=== PATIENT | female | born 1940 | race African-American/Black ===

== ENCOUNTER 2019-10-29 02:11 | Emergency (ER) | payer MEDICARE, MEDICAID, SELFPAY ==
--- NOTE | ~2019-10-29 | CT_ITS ---
EXAMINATION: CT brain wo con DATE: 10/29/2019 02:41 INDICATION: Head injury. TECHNIQUE: Computed tomography (CT) of the head was performed without intravenous contrast. The mA wa s adjusted according to patient size. Iterative reconstruction technique was employed. The dose-lengt h product was 605.33 mGy-cm. COMPARISON: Head CT 02/07/2019 FINDINGS: There is chronic encephalomalacia involving the left frontal, temporal, and parietal lobes and left insula in the expected distribution of the left middle cerebral artery. There are scattered areas of low attenuation in the cerebral white matter. There is no intracranial hemorrhage, acute inf arction, or abnormal intracranial mass lesion. There is ex vacuo dilatation of left lateral ventricle . The paranasal sinuses are clear. The mastoid air cells are normal. 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 IMPRESSION: 1. Chronic encephalomalacia in the expected distribution of the left middle cerebral artery. 2. Stable mild nonspecific cerebral white matter disease, which likely represents chronic small vesse l ischemic disease. Reviewed, dictated and finalized at location A. IMPRESSION: 1. Chronic encephalomalacia in the expected distribution of the left middle cer ebral artery. 2. Stable mild nonspecific cerebral white matter disease, which likely represen ts chronic small vessel ischemic disease.
[2019-10-29 02:14] VITALS: BP 145/96; PULSE 79; RESP 18; TEMP 36.6; O2SAT 95
--- NOTE | 2019-10-29 02:21 | ED.FALL ---
HPI - Fall General Chief Complaint: Fall Stated Complaint: fall Time Seen by Provider: 10/29/19 02:20 History of Present Illness HPI Narrative: 79 yo female w/ h/o stroke and dementia [facility] [place] [facility] after a [facility]. She is supposed to have assistance with walking, but got out of bed on her own. She fell and struck her head. She had a similar fall on Monday night. She is noted to have swelling and bruising around the right eye as well as a small laceration. On arrival she c/o of pain around the eye. History limited due to dementia Related Data Home Medications Medication Instructions Recorded Confirmed alendronate mg PO 10/29/19 amlodipine 10/29/19 bisacodyl 5 mg PO HS 10/29/19 10/29/19 calcium carbonate 600 mg PO BID 10/29/19 10/29/19 hydrochlorothiazide 10/29/19 mirabegron [Myrbetriq] mg PO 10/29/19 phenytoin sodium extended PO 10/29/19 Allergies Allergy/AdvReac Type Severity Reaction Status Date / Time No Known Allergies Allergy Unverified 02/07/19 02:01 Review of Systems Review of Systems: ROS unobtainable: Yes unobtainable due to mental status [facility] Past Medical History Medical History (Updated 10/29/19 @ 03:06 by Michele Mcmahon MD) Dementia HTN (hypertension) Social History Social History (Updated 10/29/19 @ 03:06 by Michele Mcmahon MD) Living arrangements: snf Exam Const: General: no acute distress, alert and confusion HENMT: Other: Moderate right periorbital hematoma Eyes: Pupils: Equal, round and reactive pupils present Resp: Effort & Inspection: normal respiratory effort Auscultation: clear to auscultation bilaterally Cardio: Rate: regular rate Rhythm: regular rhythm Skin: General skin exam: normal color Rashes: no rashes Neuro: Speech: normal speech Extrem: General: edema Other: contractures Course Vital Signs Vital signs: Vital Signs Temperature 36.6 C 10/29/19 02:14 Pulse Rate 79 10/29/19 02:14 Respiratory Rate 18 10/29/19 02:14 Blood Pressure 145/96 H 10/29/19 02:14 Pulse Oximetry 95 10/29/19 02:14 Temperature 36.6 C 10/29/19 02:14 Pulse Rate 83 10/29/19 02:44 Respiratory Rate 18 10/29/19 02:44 Blood Pressure 140/82 10/29/19 02:44 Pulse Oximetry 97 10/29/19 02:44 MDM - Fall MDM Narrative Medical decision making narrative: TC negative for any acute injuries Discharge Plan Discharge Clinical Impression: Closed head injury Qualifiers: Encounter type: initial encounter Qualified Code(s): S09.90XA - Unspecified injury of head, initial encounter [facility] Condition: Stable Instructions: Head Injury (ED) Prescriptions: No Action alendronate 70 mg tablet PO RF: 0 phenytoin sodium extended 100 mg capsule PO RF: 0 amlodipine 5 mg tablet RF: 0 calcium carbonate 600 mg calcium (1,500 mg) Tablet 600 mg PO BID RF: 0 bisacodyl 5 mg Tablet,Delayed Release (Dr/Ec) 5 mg PO HS RF: 0 hydrochlorothiazide 25 mg tablet RF: 0 Myrbetriq 25 mg tablet extended release 24 hr PO RF: 0 Follow-up/Referrals: Kevin Veliz MD [Primary Care Provider] -
[2019-10-29 02:44] VITALS: BP 140/82; PULSE 83; RESP 18; O2SAT 97
--- NOTE | 2019-10-29 02:44 | PC.NURSE ---
pt derecka & veronica chandra, called for update. this rn explained why blair was in our ed and what dr had ordered but explained we didn't have any results yet. this rn stated that he will be called w/ any updates. [phone]
[2019-10-29 03:33] VITALS: BP 127/76; PULSE 81; RESP 18; O2SAT 100
== END 2019-10-29 03:53 ==
PROVIDERS: Emergency Provider Emergency Medicine; PCP Internal Medicine
DX: S09.90XA Unspecified injury of head, initial encounter (principal); F03.90 Unspecified dementia, unspecified severity, without behavioral disturbance, psychotic disturbance, mood disturbance, and anxiety; I10 Essential (primary) hypertension; W19.XXXA Unspecified fall, initial encounter
CPT/HCPCS: 70450; 99284

== ENCOUNTER 2021-03-04 17:13 | Emergency (ER) | payer MEDICARE, MEDICAID, SELFPAY ==
--- NOTE | ~2021-03-04 | CT_ITS ---
EXAMINATION: CT cervical spine wo con DATE: 03/04/2021 20:58 INDICATION: Head injury TECHNIQUE: Computed tomography (CT) of the cervical spine was performed without intravenous contrast. The dose-length product (DLP) was 173.32 mGy-cm. Automated exposure control and iterative reconstruc tion technique were employed. COMPARISON: None FINDINGS: There is 1 mm of retrolisthesis of C3 on C4 at 1 mm of anterolisthesis of C4 on C5. The abhilash tebral body heights are maintained. There is severe loss of intervertebral disc space height from C3- 4 through C6-7. The prevertebral soft tissues are normal. There is moderate to severe multilevel unco vertebral joint osteoarthritis. There is severe facet osteoarthritis on the right and mild to moderat e facet osteoarthritis on the left. The odontoid is intact. There is no fracture. There is severe antonia tral canal stenosis at C3-4. IMPRESSION: 1. Severe cervical spondylosis without acute findings. Reviewed, dictated and finalized at location A.
--- NOTE | ~2021-03-04 | CT_ITS ---
EXAMINATION: CT brain wo con INDICATION: Head injury COMPARISON: 10/29/2019 TECHNIQUE: Standard unenhanced head CT. The dose-length product (DLP) was 605.33 mGy-cm. The mA was a djusted according to patient size. Iterative reconstruction technique was employed. FINDINGS: There is no acute intraparenchymal hemorrhage. No evidence of mass lesion. No evidence of a cute infarction. A chronic left middle cerebral artery distribution infarct is again noted. There is mild periventricular and subcortical hypodensity probably related to small vessel ischemic disease. T here is ex vacuo enlargement of the left lateral ventricle. Intracranial calcified cerebral atheroscl erosis is noted. There are no extra-axial collections. There is no mass affect. The orbits and soft t issues are unremarkable. The visualized sinuses and mastoid air cells are well aerated. IMPRESSION: 1. Old left middle cerebral artery distribution infarct without acute intracranial abnormality. 2. Age related findings. Reviewed, dictated and finalized at location A. IMPRESSION: 1. Old left middle cerebral artery distribution infarct without acute intracran ial abnormality. 2. Age related findings.
[2021-03-04 17:22] VITALS: BP 135/79; PULSE 88; RESP 18; TEMP 36.8; O2SAT 100
--- NOTE | 2021-03-04 20:00 | PC.NURSE ---
Papa Camilo at [facility] states pt takes a daily baby aspirin.
[2021-03-04 21:00] VITALS: BP 128/72; PULSE 81; RESP 18; O2SAT 100
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
--- NOTE | 2021-03-04 21:52 | PC.NURSE ---
Leslee at [facility] notified of discharge.
--- NOTE | 2021-03-04 22:16 | PC.NURSE ---
Addendum entered by Azul Timmons 03/04/21 23:48: [facility] called with updated ETA...approximately 0200. Original Note: Called [facility] for return BLS transport to [facility]....ETA 0400. Trip # [phone] Also called [facility] and [facility]...both declined
--- NOTE | 2021-03-04 23:26 | PC.NURSE ---
Moved to room #1
--- NOTE | 2021-03-04 23:44 | PC.NURSE ---
Assumed care of pt at this time. Report taken from Kathy RAMOS. Pt sleeping on stretcher, lights dimmed.
--- NOTE | 2021-03-05 00:32 | PC.NURSE ---
EMS transport not available for hours; no contacts listed in demographics.
[2021-03-05 00:46] VITALS: BP 119/72; PULSE 66; RESP 18; TEMP 36.8; O2SAT 97
== END 2021-03-05 01:24 | disposition home or self-care (01) ==
PROVIDERS: Emergency Provider Emergency Medicine
DX: S09.90XA Unspecified injury of head, initial encounter (principal); Z79.82 Long term (current) use of aspirin; W05.0XXA Fall from non-moving wheelchair, initial encounter
CPT/HCPCS: 70450; 72125; 99284

== ENCOUNTER 2021-03-11 19:05 | Emergency (ER) | payer MEDICARE, MEDICAID, SELFPAY ==
--- NOTE | ~2021-03-11 | CT_ITS ---
EXAMINATION: CT cervical spine wo con DATE: 03/11/2021 21:37 INDICATION: Status post fall from wheelchair. TECHNIQUE: Computed tomography (CT) of the cervical spine was performed without intravenous contrast. The dose-length product was 119 mGy-cm. Automated exposure control and iterative reconstruction tech nique were employed. COMPARISON: CT dated 03/04/2021 FINDINGS: Severe cervical spondylosis with advanced multilevel uncinate and facet degenerative change . There is advanced multilevel degenerative disc disease with degenerative anterolisthesis at C4-5. C raniovertebral junction is normal. Odontoid process within normal limits. No significant paraspinal s oft tissue abnormality. Lung apices are normal. No evidence for perched facet. IMPRESSION: 1. No acute fracture. 2: Severe cervical spondylosis. Reviewed, dictated and finalized at location A.
--- NOTE | ~2021-03-11 | CT_ITS ---
EXAMINATION: CT brain wo con DATE: 03/11/2021 21:37 INDICATION: Head injury. Status post fall. TECHNIQUE: Computed tomography (CT) of the head was performed without intravenous contrast. The dose- length product was 529.67 mGy-cm. Automated exposure control and iterative reconstruction technique w ere employed. COMPARISON: CT dated 03/04/2021 FINDINGS: Large chronic left MCA distribution infarction with encephalomalacia. No acute intracranial hemorrhage, infarction, mass or mass effect. There are scattered mild periventricular and subcortica l white matter changes, most likely related to small vessel ischemic disease (microangiopathy). Paran asuncion sinuses and mastoids are pneumatized. No depressed skull fractures. IMPRESSION: 1. No acute intracranial abnormality. No significant interval change. Reviewed, dictated and finalized at location A.
--- NOTE | ~2021-03-11 | XR_ITS ---
XR pelvis 1-2V 03/11/2021 21:41 INDICATION: Status post fall. Hip pain. PROCEDURE: AP pelvis COMPARISON: 01/17/2019 FINDINGS: Fracture, dislocation or subluxation is not identified. Pelvic rings are intact. There is l ower lumbar spondylosis with levoscoliosis. The soft tissues appear within normal limits. No foreign bodies are identified. IMPRESSION: 1: NO ACUTE BONE OR JOINT ABNORMALITY IDENTIFIED. Reviewed, dictated and finalized at location A.
[2021-03-11 19:37] VITALS: BP 116/69; PULSE 93; RESP 16; TEMP 36.1; O2SAT 100
--- NOTE | 2021-03-11 21:32 | ED.FALL ---
HPI - Fall General Chief Complaint: Fall Stated Complaint: FELL FROM W/C DENIES INJURY Time Seen by Provider: 03/11/21 21:03 Source: patient, EMS and RN notes reviewed Mode of arrival: EMS Limitations: no limitations History of Present Illness HPI Narrative: This is a 80 year old female who presents for evaluation after a fall. Patient states she accidentally fell out of her wheelchair. She was leaning over when she fell out of chair onto her bottom. She does state she hit her head but denies LOC. She denies headache, nausea, vomiting, dizziness. She denies any pain. She does take aspirin daily. Related Data Allergies Allergy/AdvReac Type Severity Reaction Status Date / Time No Known Allergies Allergy Verified 03/04/21 19:58 Review of Systems Review of Systems: All systems reviewed & are unremarkable except as noted in HPI and below Exam Const: General: no acute distress and alert Orientation/consciousness: patient oriented x3 HENMT: Head: normocephalic and atraumatic Face and sinus: normal facial exam, sinuses nontender and face symmetric Eyes: Pupils: Equal, round and reactive pupils present EOM: EOMs intact bilaterally Neck: Neck: normal visual inspection Chest: Chest palpation & inspection: normal inspection of the chest Resp: Effort & Inspection: normal respiratory effort and no retractions Auscultation: clear to auscultation bilaterally Cardio: Rate: regular rate Rhythm: regular rhythm Heart sounds: no murmurs GI: GI Palp: Yes Soft to palpation, No Tenderness to palpation present (GI) and No Guarding due to palpation present (GI) Auscultation: normal bowel sounds Skin: General skin exam: normal color Rashes: no rashes Neuro: General: patient oriented x3 and CN's II-XI intact bilaterally Other: right arm contracture that is chronic. She reports right leg weakness as well that is chronic. No pain or tenderness Psych: Mental Status: mental status grossly normal Affect: normal affect Course Reevaluation(s) Reevaluation #1: Patient has no complaints. Brain and neck CT unremarkable. Will be discharged back. Date: 03/11/21 Time: 22:47 Vital Signs Vital signs: Vital Signs Temperature 97.0 F L 03/11/21 19:37 Pulse Rate 93 03/11/21 19:37 Respiratory Rate 16 03/11/21 19:37 Blood Pressure 116/69 03/11/21 19:37 Pulse Oximetry 100 03/11/21 19:37 Temperature 97.0 F L 03/11/21 19:37 Pulse Rate 74 03/11/21 23:24 Respiratory Rate 16 03/11/21 23:24 Blood Pressure 115/79 03/11/21 23:24 Pulse Oximetry 100 03/11/21 23:24 MDM - Fall Imaging Data Radiologist's impression: ITS Impressions Head CT 03/11/21 21:41 IMPRESSION: 1. No acute intracranial abnormality. No significant interval change. Cervical Spine CT 03/11/21 21:45 IMPRESSION: 1. No acute fracture. 2: Severe cervical spondylosis. Pelvis X-Ray 03/11/21 21:49 IMPRESSION: 1: NO ACUTE BONE OR JOINT ABNORMALITY IDENTIFIED. Discharge Plan Discharge Clinical Impression: Fall from wheelchair, Closed head injury Patient Disposition: Home, Self-Care Condition: Stable Instructions: Antibiotic Form, Head Injury (ED) Follow-up/Referrals: PHYSICIAN NOT ON STAFF,NONSTAFF [Primary Care Provider] -
--- NOTE | 2021-03-11 23:13 | PC.NURSE ---
made contact with [facility] to transfer pt home to [facility]. [facility] eta 0100 (trip # [phone])
[2021-03-11 23:24] VITALS: BP 115/79; PULSE 74; RESP 16; O2SAT 100
--- NOTE | 2021-03-11 23:36 | PC.NURSE ---
[facility]anda has arrived and is aware [facility]
== END 2021-03-11 23:42 | disposition home or self-care (01) ==
PROVIDERS: Emergency Provider General Practice
DX: S09.90XA Unspecified injury of head, initial encounter (principal); W05.0XXA Fall from non-moving wheelchair, initial encounter
CPT/HCPCS: 70450; 72125; 72170; 99284

== ENCOUNTER 2023-12-23 09:08 | Inpatient (IN) | payer BC, SELFPAY ==
[2023-12-23] VITALS (8 sets, daily range): BP systolic 133–154; BP diastolic 73–83; PULSE 86–115; RESP 16–20; TEMP 36.7–37.2; O2SAT 98–100; BMI 22.4
--- NOTE | ~2023-12-23 | CT_ITS ---
EXAMINATION: CT abdomen pelvis w con DATE: 12/23/2023 12:36 INDICATION: Leukocytosis. Emesis. TECHNIQUE: Computed tomography (CT) of the abdomen and pelvis was performed with 100 mL Omnipaque 350 intravenous contrast. Automated exposure control and iterative reconstruction technique were employe d. The dose-length product was 389.37 mGy-cm. COMPARISON: None. FINDINGS: The visualized portions of the lung bases demonstrate mild atelectasis. No pleural effusion . The heart size is normal. No pericardial effusion. The liver, gallbladder, spleen, pancreas, and ad renal glands are normal. There are cysts in the kidneys measuring up to 2.4 cm on the right. Stool di stends the rectum. There are small foci of gas in the wall of the rectum. There is diverticulosis of the colon without evidence of diverticulitis. The appendix is not visualized. There are no pathologic ally enlarged lymph nodes. There is no free intraperitoneal fluid. The bladder is distended. There is severe thoracic and lumbar spondylosis. IMPRESSION: 1. Stercoral colitis with rectal pneumatosis. Reviewed, dictated and finalized at location A.
--- NOTE | 2023-12-23 09:22 | ED.GIBLEED ---
HPI - GI Bleed General Chief complaint: GI Bleed Stated complaint: gi bleed Time Seen by Provider: 12/23/23 09:13 Source: patient, EMS and RN notes reviewed Mode of arrival: EMS Limitations: dementia History of Present Illness HPI Narrative: Patient presents with report of 1 episode coffee ground emesis by retirement facility staff. She had initially reported epigastric pain and nausea but denies this presently. 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 No reported syncope. Patient states she previously had colonoscopy but without prior EGD. Denies any history of liver issues or heart failure; neither of these diagnoses listed in [place] documentation. Patient's medication list is reviewed which shows low-dose aspirin but otherwise no anticoagulation therapy. Related Data Home Medications Medication Instructions Recorded Confirmed amlodipine 5 mg tablet 5 mg PO DAILY 10/29/19 12/23/23 bisacodyl 5 mg tablet,delayed 5 mg PO PRN PRN Constipation 10/29/19 12/23/23 release calcium carbonate 600 mg PO BID 10/29/19 12/23/23 hydrochlorothiazide 25 mg tablet 25 mg PO DAILY 10/29/19 12/23/23 mirabegron 25 mg tablet,extended 25 mg PO DAILY 10/29/19 12/23/23 release 24 hr (Myrbetriq) phenytoin sodium extended 100 mg 100 mg PO TID 10/29/19 12/23/23 capsule aspirin 81 mg tablet,delayed 81 mg PO DAILY 12/23/23 12/23/23 release (Adult Low Dose Aspirin) metoprolol tartrate 25 mg tablet 12.5 mg PO Q12H 12/23/23 12/23/23 Allergies Allergy/AdvReac Type Severity Reaction Status Date / Time No Known Allergies Allergy Unverified 07/29/21 11:37 [facility] Past Medical History Medical History Age-related osteoporosis without current pathological fracture Chronic pain syndrome Conversion disorder with seizures or convulsions COVID-19 Depression, unspecified Essential (primary) hypertension Hemiplegia and hemiparesis following cerebral infarction affecting right dominant side Hemiplegia, unspecified affecting right dominant side Major depressive disorder, recurrent, unspecified Malignant neoplasm of unspecified part of unspecified bronchus or lung Other seizures Overactive bladder Vascular dementia, unspecified severity, without behavioral disturbance, psychotic disturbance, mood disturbance, and anxiety Surgical History Surgical History History of colonoscopy Social History Social History Social History: Full code per retirement documentation; POLST signed 08/23/18 Smoking status: Unknown if ever smoked Do You Feel Safe in your Home?: Yes Lack of Transportation: No Lack of Food: Never True Current Housing: I Have Housing Concerned About Future Housing: No Difficulty Paying Gas/Electric Bills: No Difficulty Paying for Meds: No Currently Unemployed: No Education: Decline to Answer Difficulty w/ Childcare or Family Care: No Living arrangements: retirement Additional living arrangements comments: [facility] since August 2018 Spiritual care concerns: No Exam Narrative: GENERAL: well-nourished, and in no acute distress. HEAD: Normocephalic, atraumatic. EYES: Non injected, non icteric ENT: Nares clear, no rhinorrhea or epistaxis. Tacky mucous membranes. NECK: Supple. CHEST: Speaking in full sentences. No respiratory distress. HEART: Regular rate and rhythm. ABDOMEN/GI: Soft, nondistended. Nontender to palpation without rigidity or guarding. Rectal exam performed with RN Josie and Lisa present. Patient has hard lumps of stool present at the ear rectum on visual inspection, [place] stool type 1. No melena. FOBT/guaiac negative bedside assay. Digital disimpaction performed as above which does remove multiple [place] type 1 and type 2 stools. EXTREMITIES: No edema. Cool feet but bilaterally so. SKIN: Warm, dry,
--- NOTE | 2023-12-23 09:51 | ECG_ITS ---
Test Date: 2023-12-23 10:14:14 Measurements Intervals [place] Rate: 92 P: 34 FL: 200 QRS: -27 QRSD: 99 T: 47 QT: 370 QTc: 458 Interpretive Statements SINUS RHYTHM WITH SINUS ARRHYTHMIA POSSIBLE ANTERIOR MYOCARDIAL INFARCTION , OF INDETERMINATE AGE [30 ms Q WAVE IN V3/V4, OR R < 0.2 mV IN V4] No previous ECG available for comparison Electronically Signed On 12-24-2023 13:33:21 CDT by Mathieu Samuel M.D.
--- NOTE | 2023-12-23 10:07 | PC.NURSE ---
unable to obtain lab specimens Phlebotomy called
[2023-12-23 10:33] LABS: Basophils Percent Auto 0.1 % (0.2-1.2); Hemoglobin 12.8 g/dL (12.0-15.0); Immature Granulocyte Absolute 0.09 K/mm3 (0.00-0.031); Immature Granulocyte Percent A 0.5 % (0-0.5); Lymphocytes Absolute Auto 0.91 K/mm3 (0.9-3.2); Lymphocytes Percent Auto 5.3 % (18.3-44.2); Mean Corpuscular HGB Conc 34.6 g/dl (32-36); Mean Corpuscular Hemoglobin 32.6 pg (26-34); Mean Corpuscular Volume 94.1 fl (80-100); Mean Platelet Volume 10.4 fl (7.4-10.4); Monocytes Absolute Auto 0.7 K/mm3 (0.1-0.6); Monocytes Percent Auto 4.1 % (2.6-8.5); Neutrophils Absolute Auto 15.4 K/mm3 (1.3-6.7); Platelet Count Result 234 k/mm3 (150-375); Red Blood Count 3.93 M/mm3 (4.2-5.4); Red Cell Distribution Width 12.9 % (11.5-14.5); White Blood Count 17.1 K/mm3 (4.5-10.0)
[2023-12-23 10:43] LABS: Lactic Acid Reflex 1.5 mmol/L (0.7-2.0); Lipase 33 U/L (23-300)
[2023-12-23 10:45] LABS: Alanine Aminotransferase 16 U/L (6-35); Albumin Level 4.5 g/dL (3.5-5.1); Alkaline Phosphatase 156 U/L (38-126); Aspartate Amino Transferase 27 U/L (14-36); Bilirubin,Total 0.4 mg/dL (0.2-1.3); Blood Urea Nitrogen 21 mg/dL (7-17); Calcium 9.6 mg/dL (8.4-10.2); Carbon Dioxide 28 mmol/L (22-30); Estimated CRCL calculation 36 ml/min; Estimated Glomerular Filt Rate > 60; Glucose 160 mg/dL (65-110); Magnesium 1.8 mg/dL (1.6-2.3); Prothrombin Time 13.9 Seconds (11.1-14.7)
[2023-12-23 10:46] LABS: Partial Thromboplastin Time 23.2 Seconds (22.3-36.8)
[2023-12-23 10:53] LABS: Anion Gap 12 mmol/L (4-12); Chloride 100 mmol/L (98-107); Potassium 3.6 mmol/L (3.4-5.0); Sodium 140 mmol/L (137-145)
[2023-12-23] MEDS: SODIUM CHLORIDE 0.9% IV 1,000 ML 999 ML IV CONT (10:56)
[2023-12-23] MEDS: PANTOPRAZOLE SODIUM IV 40 MG VIAL 80 MG IV PUSH (10:57)
--- NOTE | 2023-12-23 12:24 | PC.NURSE ---
Unable to obtain blood specimen. Phlebotomy called fo assistance
[2023-12-23 12:41] LABS: Troponin I < 0.012 ng/mL (0.000-0.034)
--- NOTE | 2023-12-23 14:40 | PM.IMHP ---
H&P: HPI History of Present Illness Date/Time: 12/23/23 14:40 Chief Complaint: Coffee ground emesis. Narrative: This is an 83-year-old female with history of stroke, seizures, dementia, hypertension, lung cancer, osteoporosis, and overactive bladder who presented to the emergency department via EMS from [facility] for evaluation after she reportedly had an episode of coffee ground emesis today. She is a fair historian and some of the following is supplemented via a review of her EMR. According to the triage note she had an episode of coffee-ground emesis this morning and was sent in for evaluation. The patient states that she feels weaker than normal and does endorse mild epigastric discomfort on exam. She has not have much of an appetite. She reports constipation which is normal for her. She has been hiccuping more than usual but denies belching, bloating, heartburn, melena, and hematochezia. She also denies fever, headache, chest pain, shortness of breath, cough, sore throat, current nausea, and dysuria. She has no known history of ulcers. She is on a baby aspirin but no anticoagulants. In the ED: She was afebrile on arrival with stable blood pressures. She has been in sinus tachycardia with rates in the 90s to low 100s. Labs are significant for a WBC count of 17.1, hemoglobin 12.8, hematocrit 37, BUN 21, creatinine 0.90, lactic acid 1.5. CT scan of the abdomen and pelvis showed evidence of stercoral colitis and a small foci of gas in the wall of the rectum (imaging was taken after manual disimpaction per ED physician). She was given 1 L normal saline bolus and pantoprazole 80 mg IV and she is being admitted in this setting for GI consultation. Review of Systems Review of Systems: 12 systems were reviewed and are negative except for as per HPI. [facility] Past Medical History Medical History Age-related osteoporosis without current pathological fracture Chronic pain syndrome Conversion disorder with seizures or convulsions COVID-19 Depression, unspecified Essential (primary) hypertension Hemiplegia and hemiparesis following cerebral infarction affecting right dominant side Hemiplegia, unspecified affecting right dominant side Major depressive disorder, recurrent, unspecified Malignant neoplasm of unspecified part of unspecified bronchus or lung Other seizures Overactive bladder Vascular dementia, unspecified severity, without behavioral disturbance, psychotic disturbance, mood disturbance, and anxiety Surgical History Surgical History History of colonoscopy Social History Social History Social History: Full code per [facility]; POLST signed 08/23/18 Smoking status: Unknown if ever smoked Do You Feel Safe in your Home?: Yes Lack of Transportation: No Lack of Food: Never True Current Housing: I Have Housing Concerned About Future Housing: No Difficulty Paying Gas/Electric Bills: No Difficulty Paying for Meds: No Currently Unemployed: No Education: Decline to Answer Difficulty w/ Childcare or Family Care: No [facility]: [facility] Additional living arrangements comments: [facility] since August 2018 Spiritual care concerns: No Meds Home Medications and Allergies Home Medications Medication Instructions Recorded Confirmed Type amlodipine 5 mg tablet 5 mg PO DAILY 10/29/19 12/23/23 History bisacodyl 5 mg tablet,delayed 5 mg PO PRN PRN Constipation 10/29/19 12/23/23 History release calcium carbonate 600 mg PO BID 10/29/19 12/23/23 History hydrochlorothiazide 25 mg tablet 25 mg PO DAILY 10/29/19 12/23/23 History mirabegron 25 mg tablet,extended 25 mg PO DAILY 10/29/19 12/23/23 History release 24 hr (Myrbetriq) phenytoin sodium extended 100 mg 100 mg PO TID 10/29/19
[2023-12-23 15:33] LABS: Hematocrit 34.9 % (37.0-47.0); Hemoglobin 12.2 g/dL (12.0-15.0)
--- NOTE | 2023-12-23 16:47 | PC.NURSE ---
This patient, Je Das, was admitted to Medical Room 344-01. Patient/family oriented to hospital policies and general routines including ID bracelet, bed and alarms, visiting hours, pain management, procedures, bathroom and other care routines, personal items, smoking policy, room service/diet, and visiting hours. Information on how to activate the Rapid Response Team has been discussed. Patient/Family are encouraged to report perceived risks to care and to ask questions if they do not understand what they are told or what they should do.
--- NOTE | 2023-12-23 17:27 | PC.NURSE ---
RN completed patient's admission and medication reconciliation based off records halfway sent with patient to hospital. Patient is a poor historian but oriented at times.
[2023-12-23 17:39] LABS: Phenytoin Dilantin 14 ug/mL (10-20)
[2023-12-23] MEDS: PANTOPRAZOLE SODIUM IV 40 MG VIAL IV PUSH (21:24)
[2023-12-23] MEDS: METOPROLOL TARTRATE 12.5 MG TABLET PO (23:36)
[2023-12-24 05:28] LABS: Hematocrit 34.3 % (37.0-47.0); Hemoglobin 11.5 g/dL (12.0-15.0); Mean Corpuscular HGB Conc 33.5 g/dl (32-36); Mean Corpuscular Hemoglobin 32.1 pg (26-34); Mean Corpuscular Volume 95.8 fl (80-100); Mean Platelet Volume 10.6 fl (7.4-10.4); Platelet Count Result 215 k/mm3 (150-375); Red Blood Count 3.58 M/mm3 (4.2-5.4); Red Cell Distribution Width 13.1 % (11.5-14.5); White Blood Count 13.1 K/mm3 (4.5-10.0)
[2023-12-24 05:39] LABS: Anion Gap 11 mmol/L (4-12); Blood Urea Nitrogen 20 mg/dL (7-17); Calcium 8.9 mg/dL (8.4-10.2); Carbon Dioxide 28 mmol/L (22-30); Chloride 103 mmol/L (98-107); Estimated CRCL calculation 32 ml/min; Estimated Glomerular Filt Rate > 60; Glucose 108 mg/dL (65-110); Potassium 3.7 mmol/L (3.4-5.0); Sodium 142 mmol/L (137-145)
[2023-12-24 06:00] VITALS: BP 112/64; PULSE 85; RESP 16; TEMP 36.7; O2SAT 98
--- NOTE | 2023-12-24 08:20 | PM.IMPN ---
Progress Note: A&P Assessment and Plan (1) Coffee ground emesis: Code(s): K92.0 - Hematemesis Status: Acute Assessment and Plan: One episode of coffee-ground emesis reported 12/23/2023. Stool was guaiac negative per ED physician. Continue pantoprazole [address] Carranza has been consulted. (2) Fecal impaction in rectum: Code(s): K56.41 - Fecal impaction Status: Acute Assessment and Plan: Status post disimpaction in the ED. Continue bowel regimen. (3) Stercoral colitis: Code(s): K52.89 - Other specified noninfective gastroenteritis and colitis Status: Acute Assessment and Plan: Plan is as detailed above. (4) Leukocytosis: Code(s): D72.829 - Elevated white blood cell count, unspecified Status: Acute Assessment and Plan: WBC count is 17.1. No evidence to suggest bacterial infection at this time. (5) Hypertension: Code(s): I10 - Essential (primary) hypertension Status: Acute Assessment and Plan: Blood pressures were reviewed and they are stable. Continue amlodipine and hydrochlorothiazide and monitor daily. Plan DVT prophylaxis: scd GI prophylaxis: protonix Glycemic control: na Code Status: Full code Disposition: 83 year old female who [facility] from [facility] with complaints of coffee ground emesis. No recurrence since admission. VSS. GI was consulted and plans on taking her for EGD on Monday. Anticipate discharge back to her facility in the next 1-2 days. Medication reconciliation obtained via the following: Nurse completed on admission The file time of this note does not necessarily represent the time the patient was seen. Advance Care Plan I have confirmed that the patient's Advanced Care Plan is present, code status is documented, or surrogate decision maker is listed in patient medical record.: Yes Medication Reconciliation I have utilized all available resources to obtain, update and review the patients current medications (includes all prescriptions, OTC, herbals, cannabis, and nutritional supplements).: Yes Subjective Date/time seen: 12/24/23 08:20 Interval history: This is an 83-year-old female with history of stroke, seizures, dementia, hypertension, lung cancer, osteoporosis, and overactive bladder who presented to the emergency department via EMS from [facility] for evaluation after she reportedly had an episode of coffee ground emesis today. In the ED: She was afebrile on arrival with stable blood pressures. She has been in sinus tachycardia with rates in the 90s to low 100s. Labs are significant for a WBC count of 17.1, hemoglobin 12.8, hematocrit 37, BUN 21, creatinine 0.90, lactic acid 1.5. CT scan of the abdomen and pelvis showed evidence of stercoral colitis and a small foci of gas in the wall of the rectum (imaging was taken after manual disimpaction per ED physician). She was given 1 L normal saline bolus and pantoprazole 80 mg IV and she is being admitted in this setting for GI consultation. 12/23: Mrs. Das is doing well today. She is A&O x 3. She looks at the wall outside her room and tells me she is at the [facility] . She says she vomited yesterday and it was brown. Otherwise she has no complaints. Review of Systems Review of Systems: 12 systems were reviewed and are negative except for as per HPI. Exam Narrative: General: well appearing, thin, frail, appears stated age. HEENT: normocephalic, atraumatic. Mucous membranes moist. 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 Neck supple without JVD, lymphadenopathy, or bruit. Respiratory: clear to auscultation bilaterally. No rales/rhonic/wheeze
--- NOTE | 2023-12-24 09:41 | WPDGICN ---
Assessment and Plan Assessment and plan (1) Coffee ground emesis: Code(s): K92.0 - Hematemesis Status: Acute Assessment and Plan: stable, ? esophagitis, pud will do EGD tomorrow protonix for now (2) Fecal impaction in rectum: Code(s): K56.41 - Fecal impaction Status: Acute Assessment and Plan: treated with disimpaction in ER, she is having normal BM per RN report (3) Stercoral colitis: Code(s): K52.89 - Other specified noninfective gastroenteritis and colitis Status: Acute (4) Hypertension: Code(s): I10 - Essential (primary) hypertension Status: Acute (5) Leukocytosis: Code(s): D72.829 - Elevated white blood cell count, unspecified Status: Acute Assessment and Plan: monitor (6) Dementia: Code(s): F03.90 - Unspecified dementia, unspecified severity, without behavioral disturbance, psychotic disturbance, mood disturbance, and anxiety Status: Acute GI Consult Note Consult date/time: 12/24/23 09:41 Reason for consult: coffee ground emesis HPI: Je Das is a 83 year old female with history of stroke, seizures, dementia, hypertension, lung cancer, who presented to the emergency department via EMS from [facility] for evaluation after she reportedly had an episode of coffee ground emesis today. She is poor historian and history obtained from records. CT scan of the abdomen and pelvis showed evidence of stercoral colitis and a small foci of gas in the wall of the rectum (imaging was taken after manual disimpaction per ED physician). She was given 1 L normal saline bolus and pantoprazole 80 mg IV , no more report of nausea in the hospital and she is comfortable. Labs are significant for a WBC count of 17.1, hemoglobin 12.8, hematocrit 37, BUN 21, creatinine 0.90, lactic acid 1.5. She has rt sided hemiparesis and she is confused at baseline. Review of Systems Review of Systems: ROS unobtainable: Yes unobtainable due to mental status PMFSH Past Medical History Medical History (Updated 12/24/23 @ 09:45 by Josiah Carranza MD) Age-related osteoporosis without current pathological fracture Chronic pain syndrome Conversion disorder with seizures or convulsions COVID-19 Dementia Depression, unspecified Essential (primary) hypertension Hemiplegia and hemiparesis following cerebral infarction affecting right dominant side Hemiplegia, unspecified affecting right dominant side Major depressive disorder, recurrent, unspecified Malignant neoplasm of unspecified part of unspecified bronchus or lung Other seizures Overactive bladder Vascular dementia, unspecified severity, without behavioral disturbance, psychotic disturbance, mood disturbance, and anxiety Surgical History Surgical History History of colonoscopy Social History Social History Social History: Full code per [facility] documentation; POLST signed 08/23/18 Smoking status: Unknown if ever smoked Do You Feel Safe in your Home?: Yes Lack of Transportation: No Lack of Food: Never True Current Housing: I Have Housing Concerned About Future Housing: No Difficulty Paying Gas/Electric Bills: No Difficulty Paying for Meds: No Currently Unemployed: No Education: Decline to Answer Difficulty w/ Childcare or Family Care: No [facility] arrangements: [facility] Additional living arrangements comments: [facility] since August 2018 Spiritual care concerns: No Meds Home Medications and Allergies Home Medications Medication Instructions Recorded Confirmed Type amlodipine 5 mg tablet 5 mg PO DAILY 10/29/19 12/23/23 History bisacodyl 5 mg tablet,delayed 5 mg PO PRN PRN Constipation 10/29/19 12/23/23 History release calcium carbonate 600 mg PO BID 10/29/19 12/23/23 History hydrochlorothiazide 25
[2023-12-24 09:50] VITALS: BP 134/72; PULSE 87
[2023-12-24 09:53] VITALS: PULSE 88
[2023-12-24] MEDS: hydroCHLOROthiazide 25 MG TABLET PO (09:53)
[2023-12-24] MEDS: CALCIUM CARBONATE (OSCAL) 500 MG TABLET PO ×2 (09:53→17:15)
[2023-12-24] MEDS: METOPROLOL TARTRATE 12.5 MG TABLET PO ×2 (09:53→21:03)
[2023-12-24] MEDS: PANTOPRAZOLE SODIUM IV 40 MG VIAL IV PUSH ×2 (09:53→21:03)
[2023-12-24] MEDS: polyethylene glycoL 3350 17 GM POWD.PACK PO (09:53)
[2023-12-24] MEDS: amLODIPine BESYLATE 5 MG TABLET PO (09:53)
[2023-12-24] MEDS: MIRABEGRON 25 MG ER TABLET PO (09:53)
[2023-12-24] MEDS: PHENYTOIN SODIUM 100 MG EXTENDED RELEASE CAP PO ×2 (09:56→17:15)
[2023-12-24 14:00] VITALS: BP 133/66; PULSE 75; RESP 16; TEMP 36.7; O2SAT 98
--- NOTE | 2023-12-24 18:27 | PC.NURSE ---
RN spoke with patient's WILMAN Weldon and obtained verbal consent over the phone for patient to have EGD tomorrow.
[2023-12-24 20:35] VITALS: BP 125/77; PULSE 77; RESP 18; TEMP 36.8; O2SAT 98
[2023-12-25] VITALS (8 sets, daily range): BP systolic 80–168; BP diastolic 49–84; PULSE 68–92; RESP 18–23; TEMP 36.2–36.8; O2SAT 94–99
[2023-12-25 05:35] LABS: Basophils Percent Auto 0.2 % (0.2-1.2); Eosinophils Absolute Auto 0.3 K/mm3 (0-0.3); Eosinophils Percent Auto 3.5 % (0-4.4); Hematocrit 32.8 % (37.0-47.0); Hemoglobin 11.2 g/dL (12.0-15.0); Immature Granulocyte Absolute 0.03 K/mm3 (0.00-0.031); Immature Granulocyte Percent A 0.3 % (0-0.5); Lymphocytes Percent Auto 26.2 % (18.3-44.2); Mean Corpuscular HGB Conc 34.1 g/dl (32-36); Mean Corpuscular Volume 96.8 fl (80-100); Mean Platelet Volume 10.6 fl (7.4-10.4); Monocytes Absolute Auto 0.6 K/mm3 (0.1-0.6); Monocytes Percent Auto 6.4 % (2.6-8.5); Neutrophils Percent Auto 63.4 % (45.5-73.1); Platelet Count Result 191 k/mm3 (150-375); Red Blood Count 3.39 M/mm3 (4.2-5.4); Red Cell Distribution Width 13.2 % (11.5-14.5); White Blood Count 9.5 K/mm3 (4.5-10.0)
[2023-12-25 05:54] LABS: Alanine Aminotransferase 15 U/L (6-35); Albumin Level 3.5 g/dL (3.5-5.1); Alkaline Phosphatase 99 U/L (38-126); Anion Gap 8 mmol/L (4-12); Aspartate Amino Transferase 39 U/L (14-36); Bilirubin,Total 0.3 mg/dL (0.2-1.3); Blood Urea Nitrogen 19 mg/dL (7-17); Calcium 8.6 mg/dL (8.4-10.2); Carbon Dioxide 28 mmol/L (22-30); Chloride 101 mmol/L (98-107); Estimated CRCL calculation 40 ml/min; Estimated Glomerular Filt Rate > 60; Glucose 103 mg/dL (65-110); Magnesium 1.9 mg/dL (1.6-2.3); Potassium 3.3 mmol/L (3.4-5.0); Sodium 137 mmol/L (137-145)
--- NOTE | 2023-12-25 08:45 | PM.IMPN ---
Progress Note: A&P Assessment and Plan (1) Coffee ground emesis: Code(s): K92.0 - Hematemesis Status: Acute Assessment and Plan: One episode of coffee-ground emesis reported 12/23/2023. Stool was guaiac negative per ED physician. Continue pantoprazole [address] Carranza has been consulted. (2) Fecal impaction in rectum: Code(s): K56.41 - Fecal impaction Status: Acute Assessment and Plan: Status post disimpaction in the ED. Continue bowel regimen. (3) Stercoral colitis: Code(s): K52.89 - Other specified noninfective gastroenteritis and colitis Status: Acute Assessment and Plan: Plan is as detailed above. (4) Leukocytosis: Code(s): D72.829 - Elevated white blood cell count, unspecified Status: Acute Assessment and Plan: WBC count is 17.1. No evidence to suggest bacterial infection at this time. (5) Hypertension: Code(s): I10 - Essential (primary) hypertension Status: Acute Assessment and Plan: Blood pressures were reviewed and they are stable. Continue amlodipine and hydrochlorothiazide and monitor daily. Plan DVT prophylaxis: scd GI prophylaxis: protonix Glycemic control: na Code Status: Full code Disposition: 83 year old female who [facility] with complaints of coffee ground emesis. No recurrence since admission. VSS. GI was consulted and plans on taking her for EGD on Monday. Anticipate discharge back to her facility in the next 1-2 days. Medication reconciliation obtained via the following: Nurse completed on admission The file time of this note does not necessarily represent the time the patient was seen. Advance Care Plan I have confirmed that the patient's Advanced Care Plan is present, code status is documented, or surrogate decision maker is listed in patient medical record.: Yes Medication Reconciliation I have utilized all available resources to obtain, update and review the patients current medications (includes all prescriptions, OTC, herbals, cannabis, and nutritional supplements).: Yes Subjective Date/time seen: 12/25/23 08:45 Interval history: This is an 83-year-old female with history of stroke, seizures, dementia, hypertension, lung cancer, osteoporosis, and overactive bladder who presented to the emergency department via EMS from [facility] for evaluation after she reportedly had an episode of coffee ground emesis today. In the ED: She was afebrile on arrival with stable blood pressures. She has been in sinus tachycardia with rates in the 90s to low 100s. Labs are significant for a WBC count of 17.1, hemoglobin 12.8, hematocrit 37, BUN 21, creatinine 0.90, lactic acid 1.5. CT scan of the abdomen and pelvis showed evidence of stercoral colitis and a small foci of gas in the wall of the rectum (imaging was taken after manual disimpaction per ED physician). She was given 1 L normal saline bolus and pantoprazole 80 mg IV and she is being admitted in this setting for GI consultation. 12/23: Mrs. Das is doing well today. She is A&O x 3. She looks at the wall outside her room and tells me she is at the [facility] . She says she vomited yesterday and it was brown. Otherwise she has no complaints. Review of Systems Review of Systems: 12 systems were reviewed and are negative except for as per HPI. Exam Narrative: General: well appearing, thin, frail, appears stated age. HEENT: normocephalic, atraumatic. Mucous membranes moist. 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 Neck supple without JVD, lymphadenopathy, or bruit. Respiratory: clear to auscultation bilaterally. No rales/rhonic/wheeze
--- NOTE | 2023-12-25 11:35 | PC.NURSE ---
Patient off of unit to GI lab
[2023-12-25] MEDS: LACTATED RINGERS 1,000 ML 150 ML IV CONT (11:40)
--- NOTE | 2023-12-25 11:49 | WPDANESEPPF ---
Anes - Initial Pre Proc Eval Procedure: Operation Date: 12/25/23 16:30 Proposed Procedures p Esophagogastroduodenoscopy - Josiah Carranza MD Date/Time: 12/25/23 11:49 Surgeon: Aura Boland APRN Pre Op Diagnosis: upper gi bleed and sterocoral colitis Patient Data Age: 83 Gender: F Height: 1.6 m Weight: 53.9 kg Last Vital Signs Temp 97.1 F L 12/25/23 11:37 Pulse 78 12/25/23 11:37 Resp 18 12/25/23 11:37 BP 117/64 12/25/23 11:37 Pulse Ox 99 12/25/23 11:37 O2 Del Method Room Air 12/25/23 11:37 Allergies Allergy/AdvReac Type Severity Reaction Status Date / Time No Known Allergies Allergy Unverified 12/25/23 11:36 Home Medications Medication Instructions Recorded Confirmed Type amlodipine 5 mg tablet 5 mg PO DAILY 10/29/19 12/23/23 History bisacodyl 5 mg tablet,delayed 5 mg PO PRN PRN Constipation 10/29/19 12/23/23 History release calcium carbonate 600 mg PO BID 10/29/19 12/23/23 History hydrochlorothiazide 25 mg tablet 25 mg PO DAILY 10/29/19 12/23/23 History mirabegron 25 mg tablet,extended 25 mg PO DAILY 10/29/19 12/23/23 History release 24 hr (Myrbetriq) phenytoin sodium extended 100 mg 100 mg PO TID 10/29/19 12/23/23 History capsule aspirin 81 mg tablet,delayed 81 mg PO DAILY 12/23/23 12/23/23 History release (Adult Low Dose Aspirin) metoprolol tartrate 25 mg tablet 12.5 mg PO Q12H 12/23/23 12/23/23 History Laboratory Tests 12/25/23 05:15 WBC 9.5 K/mm3 (4.5-10.0) RBC 3.39 L M/mm3 (4.2-5.4) Hgb 11.2 L g/dL (12.0-15.0) Hct 32.8 L % (37.0-47.0) MCV 96.8 fl (80-100) MCH 33.0 pg (26-34) MCHC 34.1 g/dl (32-36) RDW 13.2 % (11.5-14.5) Plt Count 191 k/mm3 (150-375) MPV 10.6 H fl (7.4-10.4) Immature Gran % (Auto) 0.3 % (0-0.5) Neut % (Auto) 63.4 % (45.5-73.1) Lymph % (Auto) 26.2 % (18.3-44.2) [place] % (Auto) 6.4 % (2.6-8.5) Eos % (Auto) 3.5 % (0-4.4) Baso % (Auto) 0.2 % (0.2-1.2) Lymph # (Auto) 2.50 K/mm3 (0.9-3.2) [place] # (Auto) 0.6 K/mm3 (0.1-0.6) Eos # (Auto) 0.3 K/mm3 (0-0.3) Baso # (Auto) 0.0 K/mm3 (0.0-0.1) Abs Immat Gran (auto) 0.03 K/mm3 (0.00-0.031) Absolute Neuts (auto) 6.0 K/mm3 (1.3-6.7) Absolute Nucleated RBC 0.000 K/mm3 (0.0-0.012) Nucleated RBC % 0.0 % (0.0-0.2) Sodium 137 mmol/L (137-145) Potassium 3.3 L mmol/L (3.4-5.0) Chloride 101 mmol/L (98-107) Carbon Dioxide 28 mmol/L (22-30) Anion Gap 8 mmol/L (4-12) BUN 19 H mg/dL (7-17) Creatinine 0.80 mg/dL (0.7-1.0) Estim Creat Clear Calc 40 ml/min Estimated GFR > 60 (59 - ) Glucose 103 mg/dL (65-110) Calcium 8.6 mg/dL (8.4-10.2) Magnesium 1.9 mg/dL (1.6-2.3) Total Bilirubin 0.3 mg/dL (0.2-1.3) AST 39 H U/L (14-36) ALT 15 U/L (6-35) Alkaline Phosphatase 99 U/L (38-126) Total Protein 7.0 g/dL (6.3-8.2) Albumin 3.5 g/dL (3.5-5.1) Patient hx anesthesia problems: none Family hx anesthesia problems: none Results Review: All pre-operative results and documents have been reviewed as part of the pre-operative evaluation. [facility] Past Medical History Medical History (Updated 12/24/23 @ 09:45 by Josiah Carranza MD) Age-related osteoporosis without current pathological fracture Chronic pain syndrome Conversion disorder with seizures or convulsions COVID-19 Dementia Depression, unspecified Essential (primary) hypertension Hemiplegia and hemiparesis following cerebral infarction affecting right dominant side Hemiplegia, unspecified affecting right dominant side Major depressive disorder, recurrent, unspecified Malignant neoplasm of unspecified part of unspecified bronchus or lung Other seizures Overactive bladder Vascular dementia, unspecified severity, without behavioral disturbance, psychotic disturbance, mood disturbance, and a
[2023-12-25] MEDS: PHENYTOIN SODIUM 100 MG EXTENDED RELEASE CAP PO ×2 (13:56→17:44)
--- NOTE | 2023-12-25 14:22 | PM.DS ---
DS: Admitting Diagnosis Discharge Date 12/24 Admitting Diagnosis Coffee-ground emesis DS: Discharge Diagnosis Discharge Diagnosis (1) Coffee ground emesis: Code(s): K92.0 - Hematemesis Status: Acute (2) Fecal impaction in rectum: Code(s): K56.41 - Fecal impaction Status: Acute (3) Stercoral colitis: Code(s): K52.89 - Other specified noninfective gastroenteritis and colitis Status: Acute (4) Leukocytosis: Code(s): D72.829 - Elevated white blood cell count, unspecified Status: Acute (5) Hypertension: Code(s): I10 - Essential (primary) hypertension Status: Acute Plan Assessment and Plan (1) Coffee ground emesis: Code(s): K92.0 - Hematemesis Status: Acute Assessment and Plan: One episode of coffee-ground emesis reported 12/23/2023. Stool was guaiac negative per ED physician. Continue pantoprazole [address] Carranza has been consulted. (2) Fecal impaction in rectum: Code(s): K56.41 - Fecal impaction Status: Acute Assessment and Plan: Status post disimpaction in the ED. Continue bowel regimen. (3) Stercoral colitis: Code(s): K52.89 - Other specified noninfective gastroenteritis and colitis Status: Acute Assessment and Plan: Plan is as detailed above. (4) Leukocytosis: Code(s): D72.829 - Elevated white blood cell count, unspecified Status: Acute Assessment and Plan: WBC count is 17.1. No evidence to suggest bacterial infection at this time. (5) Hypertension: Code(s): I10 - Essential (primary) hypertension Status: Acute Assessment and Plan: Blood pressures were reviewed and they are stable. Continue amlodipine and hydrochlorothiazide and monitor daily. Plan DVT prophylaxis: scd GI prophylaxis: protonix Glycemic control: na Code Status: Full code Disposition: 83 year old female who [facility] from [facility] with complaints of coffee ground emesis. No recurrence since admission. VSS. GI was consulted and plans on taking her for EGD on Monday. Anticipate discharge back to her facility in the next 1-2 days. Medication reconciliation obtained via the following: Nurse completed on admission The file time of this note does not necessarily represent the time the patient was seen. DS: Summary Hospital Course Reason for hospitalization: Coffee ground emesis, stercoral colitis Hospital Course: This is an 83-year-old female with history of stroke, seizures, dementia, hypertension, lung cancer, osteoporosis, and overactive bladder who presented to the emergency department via EMS from [facility] for evaluation after she reportedly had an episode of coffee ground emesis today. In the ED: She was afebrile on arrival with stable blood pressures. She has been in sinus tachycardia with rates in the 90s to low 100s. Labs are significant for a WBC count of 17.1, hemoglobin 12.8, hematocrit 37, BUN 21, creatinine 0.90, lactic acid 1.5. CT scan of the abdomen and pelvis showed evidence of stercoral colitis and a small foci of gas in the wall of the rectum (imaging was taken after manual disimpaction per ED physician). She was given 1 L normal saline bolus and pantoprazole 80 mg IV and she is being admitted in this setting for GI consultation. She required disimpaction in the emergency room for constipation. While she did have leukocytosis on arrival this recovered without initiation of antibiotics. GI saw her in consult and took her for an EGD which found gastritis. There was no acute bleeding noted. She was started on Protonix daily and discharged to her detention facility in stable condition. Time Spent with Patient Time attestation: Total time spent providing and/or coordinating discharge services:70 Ex
--- NOTE | 2023-12-25 15:02 | PC.NURSE ---
RN called [facility] for transfer. Unable to take patient at this time. RN had patient added to ambulance list for [facility].
[2023-12-25] MEDS: POTASSIUM CHLORIDE 20 MEQ PACKET (FOR LIQUID) 40 MEQ PO (15:23)
[2023-12-25] MEDS: CALCIUM CARBONATE (OSCAL) 500 MG TABLET PO (17:44)
== END 2023-12-25 20:09 | DRG 392 ==
LOC: ANHED 09:21 → ANH3MED 15:24
PROVIDERS: Internal Medicine Gastroenterology; Physician Assistant; Admitting Provider Internal Medicine; Emergency Provider Student in an Organized Health Care Education/Training Program; PCP Internal Medicine; Visit Provider Nurse Practitioner Acute Care
PROC: 0DJ08ZZ Inspection of Upper Intestinal Tract, Via Natural or Artificial Opening Endoscopic (ICD-10-PCS; CPT 43235; principal; 2023-12-25 16:30)
DX: K52.89 Other specified noninfective gastroenteritis and colitis (principal); I69.351 Hemiplegia and hemiparesis following cerebral infarction affecting right dominant side; K92.0 Hematemesis; K29.70 Gastritis, unspecified, without bleeding; K56.41 Fecal impaction; D72.829 Elevated white blood cell count, unspecified; I10 Essential (primary) hypertension; M81.0 Age-related osteoporosis without current pathological fracture; N32.81 Overactive bladder; G89.4 Chronic pain syndrome; F32.A Depression, unspecified; F44.9 Dissociative and conversion disorder, unspecified; F01.50 Vascular dementia, unspecified severity, without behavioral disturbance, psychotic disturbance, mood disturbance, and anxiety; R73.9 Hyperglycemia, unspecified; Z85.118 Personal history of other malignant neoplasm of bronchus and lung; Z86.16 Personal history of COVID-19
CPT/HCPCS: 36415; 74177; 80048; 80053; 80185; 83605; 83690; 83735; 84484; 85014; 85018; 85025; 85027; 85610; 85730; 86850; 86900; 86901; 88305; 93005; 96361; 96374; 99285; A9270; G0378; J2371; J2470; J2704; J7030; J7120; Q9967